=== PATIENT | female | born 1990 | race Caucasian/White ===

== ENCOUNTER 2017-03-08 04:46 | Emergency (ER) | payer BC, OTHER ==
[2017-03-08 05:02] VITALS: BP 121/69; PULSE 85; RESP 18; TEMP 98.1; O2SAT 99
[2017-03-08] MEDS ORDERED: PREN29TA PO (05:02)
--- NOTE | 2017-03-08 05:17 | PD ---
HPI Chief Complaint: Chest Pain Time Seen by Provider: 05:10 Travel History International Travel<30 days: No Contact w/Intl Traveler<30days: No Traveled to known affect area: No History of Present Illness HPI 26-year-old female presents to the emergency department for complaint of chest pain 5 hours since midnight. Patient reports she is 22 weeks with twins. Patient is Ab1. Patient states last visit. Was generated 2016 do date is July 04, 2017 patient's SPORTS MEDICINE PHYSICIAN is Dr. Villanueva and [place]. Patient states last ultrasound was 2 weeks ago and that was to check the anatomy of the fetuses. Patient states she was seen by her SPORTS MEDICINE PHYSICIAN 5 days ago and at that time routine exam started that she had one fingertip dilatation of her cervix. Patient that time was having some intermittent crampy abdominal pain and pelvic pain. Patient was told to be at bed rest and no heavy lifting. Patient has continued to have the same intermittent cramping and abdominal pain that has not changed or worsened. Patient denies any fluid leak or any vaginal bleeding. No report of dysuria frequency or urgency. Patient states prior to this evening she has not experienced any chest pain. He is left-sided and intermittently sharp in nature. It does not worsen with movement or with taking a deep breath and is not pleuritic in nature. No shortness of breath. Patient does not report any lower extremity pain or swelling. No long distance travel. Patient's had no upper extremity pain or swelling. Patient is concerned that she has some prominent blood vessels on her buttock and states she was on the Internet reading and is concerned that she has deep pain thrombosis of the buttock. Patient denies other concerns or complaints. No previous chronic medical conditions or past medical history. Patient has had surgery for correction of episiotomy complications from previous but no other surgeries. Patient is a nonsmoker. Patient rates pain as 9/10 in intensity. Patient states pain intermittently radiates to the left arm. No family history of premature onset heart disease. Patient has experienced some nausea but denies any vomiting and no sweats. No recent long distance travel protracted bedrest or surgical procedure. Again patient's had no fever no chills no shortness of breath and no productive cough. PFSH Past Medical History Narrative Medical Ab1; episiotomy; no tobacco use; nursing notes reviewed Medical History: Denies Significant Hx Diminished Hearing: No Immunizations Current: Yes Tetanus Vaccination: < 5 Years Influenza Vaccination: No ?: LMP: 09/2016 : 4 Para: 2 Miscarriage: 1 Past Surgical History Gynecologic Surgery: Yes (EPISIOTOMY REPAIR) Social History Alcohol Use: No Tobacco Use: No Substance Use: No Allergies-Medications (Allergen,Severity, Reaction): Coded Allergies: No Known Allergies (Unverified , 03/08/17) Reported Meds & Prescriptions Reported Meds & Active Scripts Active Reported Plus Iron 29-1 mg ( Vit-Iron Carbonyl) 1 Tab Tab 1 Tab PO DAILY Review of Systems Except as stated in HPI: all other systems reviewed are Neg General / Constitutional: No: Fever, Chills HENT: No: Congestion Cardiovascular: No: Palpitations, Diaphoresis, Dyspnea on exertion, Edema, Claudication Respiratory: No: Cough, Shortness of Breath Gastrointestinal: Positive: Nausea, No: Vomiting, Diarrhea, Abdominal Pain Genitourinary: Positive: Pelvic Pain (intermittent cramping), No: Urgency, Frequency, Dysuria, Discharge, Vaginal Bleeding Musculoskeletal: No: Myalgias, Arthralgias Skin: No Rash Neurologic: No: Weakness Psychiatric: No: Anxiety Hematologic/Lymphatic: No: Easy Bruising Physical Exam Narrative GENERAL: Well-developed well-nourished female in no acute respiratory distress appears mildly anxious SKIN: Warm and dry. Buttock left buttock cheek upon standing is notable palpable varicosity and on the right cheek faint palpable varicosity without cording. HEAD: Normocephalic. EYES: No scleral icterus. No injection or drainage. NECK: Supple, trachea midline. No JVD or lymphadenopathy. CARDIOVASCULAR: Regular rate and rhythm without murmurs, gallops, or rubs. RESPIRATORY: Breath sounds equal bilaterally. No accessory muscle use. GASTROINTESTINAL: Abdomen soft, non-tender, fundal height nondistended. Pelvic exam: External exam no redness induration or lesions; bimanual exam cervix is fingertip dilated no blood on exam glove. heart tones 156 and 152. MUSCULOSKELETAL: No cyanosis, or edema. BACK: Nontender without obvious deformity. No CVA tenderness. Data Data Last Documented VS Vital Signs Date Time Temp Pulse Resp B/P Pulse Ox O2 Delivery O2 Flow Rate FiO2 03/08/17 07:01 97.7 71 16 105/57 100 Orders Complete Blood Count With Diff (03/08/17 05:32) Basic Metabolic Panel (Bmp) (03/08/17 05:32) Urinalysis - C+S If Indicated (03/08/17 05:32) Troponin I (03/08/17 05:32) Electrocardiogram (03/08/17 ) Acetaminophen (Tylenol) (03/08/17 06:30) Potassium Chloride (Kcl) (03/08/17 06:30) Urine Culture (03/08/17 05:40) Protein Corrected Calcium(Pcc) (03/08/17 06:21) Magnesium (Mg) (03/08/17 06:21) Blood Glucose (03/08/17 06:23) Metoclopramide Inj (Reglan Inj) (03/08/17 06:30) Nitrofurantoin Monohyd Macrocr (Macrobid (03/08/17 07:30) Labs Laboratory Tests Test 03/08/17 03/08/17 05:40 05:50 Urine Color YELLOW Urine Turbidity CLEAR Urine pH 6.0 Urine Specific [place] 1.005 Urine Protein NEG mg/dL Urine Glucose (UA) NEG mg/dL Urine Ketones NEG mg/dL Urine Occult Blood NEG Urine Nitrite NEG Urine Bilirubin NEG Urine Leukocyte Esterase SMALL Urine RBC 0-3 /hpf Urine WBC 3-5 /hpf Urine WBC Clumps OCC Urine Squamous Epithelial 0-5 /hpf Cells Urine Amorphous Sediment FEW Urine Bacteria OCC /hpf Microscopic Urinalysis Comment CULTURE INDICATED White Blood Count 8.4 TH/MM3 Red Blood Count 3.63 MIL/MM3 Hemoglobin 9.4 GM/DL Hematocrit 28.0 % Mean Corpuscular Volume 77.1 FL Mean Corpuscular Hemoglobin 25.9 PG Mean Corpuscular Hemoglobin 33.6 % Concent Red Cell Distribution Width 11.6 % Platelet Count 233 TH/MM3 Mean Platelet Volume 7.2 FL Neutrophils (%) (Auto) 65.5 % Lymphocytes (%) (Auto) 24.6 % Monocytes (%) (Auto) 8.1 % Eosinophils (%) (Auto) 1.3 % Basophils (%) (Auto) 0.5 % Neutrophils # (Auto) 5.5 TH/MM3 Lymphocytes # (Auto) 2.1 TH/MM3 Monocytes # (Auto) 0.7 TH/MM3 Eosinophils # (Auto) 0.1 TH/MM3 Basophils # (Auto) 0.0 TH/MM3 CBC Comment DIFF FINAL Differential Comment Sodium Level 140 MEQ/L Potassium Level 3.0 MEQ/L Chloride Level 106 MEQ/L Carbon Dioxide Level 23.7 MEQ/L Anion Gap 10 MEQ/L Blood Urea Nitrogen 4 MG/DL Creatinine 0.56 MG/DL Estimat Glomerular Filtration 132 ML/MIN Rate Random Glucose 72 MG/DL Calcium Level 7.9 MG/DL Troponin I LESS THAN 0.02 NG/ML MDM Medical Decision Making Medical Screen Exam Complete: Yes Emergency Medical Condition: Yes Medical Record Reviewed: Yes Interpretation(s) EKG: Normal sinus rhythm rate [address] elevation or injury pattern change Vital Signs Date Time Temp Pulse Resp B/P Pulse Ox O2 Delivery O2 Flow Rate FiO2 03/08/17 05:04 85 03/08/17 05:03 20 98 03/08/17 05:02 98.1 85 18 121/69 99 CBC & BMP Diagram 03/08/17 05:50 Serum calcium: 7.9, this is not protein and corrected Urinalysis: Positive for small leukocyte Estrace positive for white blood cells positive for bacteria cultures indicated Differential Diagnosis Chest pain, musculoskeletal pain, pneumothorax, PE, pneumonia, premature labor, varicose veins, superficial phlebitis; low suspicion for PE etiology -- Narrative Course Patient placed on compliance monitor IV access obtained EKG performed which is sinus rhythm with no acute ST elevation or injury pattern change noted; vital signs are normal range no tachycardia no tachypnea afebrile room air O2 saturation 99% normal range blood pressure; bedside ultrasound curvilinear probe with longitudinal and sagittal views reveals twin intrauterine with good heart tone of both fetuses heart rate 156 and 152. At 6:27 AM patient states she no longer has chest discomfort but does continue to have some intermittent cramping in the left upper extremity; CBC with automated differential is remarkable for normal total white cell count platelet count with mild anemia hemoglobin 9.4 comparison values available patient's urinalysis is noted to have leukocyte Estrace white blood cells and bacteria culture is indicated and chemistries remarkable for hypokalemia 3.0 hypocalcemia of 7.9 and this is not protein corrected and mild hyperglycemia of 72. Troponin I is less than 0.02 not elevated. Patient ordered to receive Tylenol 650 mg by mouth does complain of nausea and states that she cannot take Zofran as her miscarriage was felt to be related to her receiving Zofran during the first trimester. Patient was on another antibiotic but she does not recall the name of the medication that she took during this for severe nausea and vomiting at the beginning of the . Patient denies other concerns or complaints. A protein corrected calcium has been ordered. Patient has been ordered to receive oral potassium replacement once her nausea has dissipated; ordered Reglan. Bedside glucose: 76, patient offered oral hydration/orange juice. oral potassium replacement; PCC pending, Mg level pending At 7:13 AM patient clinically improved reports no chest discomfort no pressure no dullness no stabbing pain still has some mild residual discomfort to the upper left arm rates the discomfort is 4/10 in intensity. Patient continues to deny any shortness of breath or pleuritic pain. Patient's blood pressure is 105 /57 room air O2 saturation is 98% respirations are 16 and nonlabored heart rate is 75. Patient notes that her nausea has significant only improved after Reglan and has received oral potassium replacement, acetaminophen, and oral hydration with orange juice. Care will be signed over to oncoming physician for pending protein corrected calcium and magnesium and possible referral to [facility] for monitoring to the OB ED department. Pending labs and disposition signed over to Dr Ibanez. Diagnosis Primary Impression: Qualified Code: Z3A.22 - 22 weeks gestation of Additional Impressions: Hypokalemia Chest pain Qualified Code: R07.9 - Chest pain, unspecified type Med/Other Pt SpecificInfo: Prescription(s) given Scripts Nitrofurantoin Monohydrate Macrocrystals (Macrobid)100 Mg [id number] Mg PO BID 7 Days Ref 0 Prov:Shasha Avilez MD 03/08/17 Shasha Avilez MD Mar 08, 2017 05:17
[2017-03-08 05:55] LABS: AUTOMATED NEUTROPHIL # 5.5 TH/MM3 (1.8-7.7); BASOPHIL % 0.5 % (0.0-2.0); EOSINOPHIL # 0.1 TH/MM3 (0-0.4); EOSINOPHIL % 1.3 % (0.0-4.0); HEMO FLAGS DIFF FINAL; LYMPH % 24.6 % (9.0-44.0); LYMPHOCYTE # 2.1 TH/MM3 (1.0-4.8); MEAN CELL VOLUME 77.1 FL (80.0-100.0); MEAN CORPUSCULAR HEMOGLOBIN 25.9 PG (27.0-34.0); MEAN CORPUSCULAR HGB CONC 33.6 % (32.0-36.0); MONO % 8.1 % (0.0-8.0); NEUT % 65.5 % (16.0-70.0); PLATELET COUNT 233 TH/MM3 (150-450); RED BLOOD COUNT 3.63 MIL/MM3 (4.00-5.30); RED CELL DISTRIBUTION WIDTH 11.6 % (11.6-17.2); WHITE BLOOD COUNT 8.4 TH/MM3 (4.0-11.0)
[2017-03-08 06:04] LABS: BLOOD, URINE NEG (NEG); GLUCOSE,URINE NEG (NEG); KETONE, URINE NEG (NEG); NITRITE,URINE NEG (NEG)
[2017-03-08 06:06] LABS: CHLORIDE 106 MEQ/L (98-107); SODIUM (NA) 140 MEQ/L (136-145)
[2017-03-08 06:09] LABS: ANION GAP 10 MEQ/L (5-15); BICARBONATE 23.7 MEQ/L (21.0-32.0); BLOOD UREA NITROGEN 4 MG/DL (7-18)
[2017-03-08 06:12] LABS: GLOMERULAR FILTRATION RATE 132 ML/MIN (>89)
[2017-03-08 06:16] LABS: URINE COLOR YELLOW (YELLW/STRAW)
[2017-03-08 06:17] LABS: BACTERIA, URINE OCC /hpf; RBC, URINE 0-3 /hpf (0-3); SQUAMOUS EPITHELIAL CELL URINE 0-5 /hpf (0-5)
[2017-03-08 06:18] LABS: COMMENT (UR) CULTURE INDICATED; CULTURE IF INDICATED CULTURE INDICATED
[2017-03-08] MEDS ORDERED: ACETAMINOPHEN 325 MG TAB PO ONE (06:30)
[2017-03-08] MEDS ORDERED: METOCLOPRAMIDE HCL 10 MG/2 ML VIAL IV PUSH ONE (06:30)
[2017-03-08] MEDS ORDERED: POTASSIUM CHLORIDE 20 MEQ CONTROLLED RELEASE TAB PO ONE (06:30)
[2017-03-08 06:46] VITALS: BP 112/86; PULSE 90; RESP 20; O2SAT 98
[2017-03-08 07:01] VITALS: BP 105/57; PULSE 71; RESP 16; TEMP 97.7; O2SAT 100
[2017-03-08] MEDS ORDERED: NITROFURANTOIN MONOHYD MACROCR 100 MG CAP PO ONE (07:30)
[2017-03-08] MEDS ORDERED: MACR100C2 PO (07:33)
[2017-03-08 07:35] LABS: MAGNESIUM 1.9 MG/DL (1.5-2.5)
[2017-03-08 07:40] LABS: CALCIUM-PROTEIN CORRECTED 8.8 MG/DL (8.5-10.1)
--- NOTE | 2017-03-08 23:05 | EKG ---
Date Performed: 03/08/2017 Time Performed: 05:05:58 PTAGE: 26 years EKG: Sinus rhythm WITH SINUS ARRHYTHMIA NORMAL ECG NO PREVIOUS TRACING DOCTOR: Akhil Abad Interpretating Date/Time 03/08/2017 23:04:06
== END 2017-03-08 08:53 | disposition home or self-care (01) ==
LOC: PHED 04:46
DX: O26.892 Other specified pregnancy related conditions, second trimester (principal); Z3A.22 22 weeks gestation of pregnancy; R07.9 Chest pain, unspecified; E87.6 Hypokalemia
CPT/HCPCS: 80048; 81001; 83735; 84155; 84484; 85025; 87086; 93005; 96374; 99284; J2765